=== PATIENT | female | born 1950 | race Caucasian/White ===

== ENCOUNTER 2020-02-26 21:59 | Emergency (ER) | payer OTHER ==
[~2020-02-26] VITALS: Ht 157.5 cm; Wt 93.0 kg
[~2020-02-26 21:59] MED LIST: ADDERALL 20 MG20 M1 PO; CIPROFLOXACIN500 M1 PO; FLOMAX0.4 MG PO; LEXAPRO20 MG PO; NORCO 5-325 TA1 EAC2 PO; NORCO 5-325 TA1 EACH PO; PROBIOTIC1 EACH PO; TAMSULOSIN HCL0.4 M1 PO; TORADOL 10 MG T10 MG PO; VICODIN 5-5001 EACH PO; VITAMINC500 PO; VYVANSE60 MG PO; WELLBUTRIN XL300 MG PO; ZOFRAN4 MG PO
[2020-02-26 23:01] LABS: URINE BILIRUBIN NEGATIVE (Negative); URINE BLOOD 3+ (Negative); URINE CLARITY CLOUDY; URINE COLOR YELLOW; URINE GLUCOSE-RANDOM* NEGATIVE (Negative); URINE KETONES NEGATIVE (Negative); URINE LEUKOCYTES-REFLEX NEGATIVE (Negative); URINE NITRITE-REFLEX NEGATIVE (Negative); URINE PROTEIN (DIPSTICK) 2+ (Negative); URINE SPECIFIC GRAVITY >= 1.030 (1.005-1.035); URINE UROBILINOGEN 0.2 E.U./dl (0.2-1.0)
[2020-02-26 23:02] LABS: ABSOLUTE NEUTROPHILS 11.1 thou/uL (1.4-8.2); BASOPHILS 0.6 % (0.0-2.0); EOSINOPHILS 4.6 % (0.0-3.0); HEMATOCRIT 29.3 % (37.0-47.0); HEMOGLOBIN 10.3 gm/dL (12.0-15.0); LYMPHOCYTES 14.9 % (24.0-44.0); MCH 29.3 pg (26.0-34.0); MCHC 35.1 g/dL (28.0-37.0); MCV 83.5 fL (80.0-100.0); MONOCYTES 7.4 % (1.0-8.0); PLATELET COUNT 555 thou/uL (150-400); POLYS 72.5 % (36.0-66.0); RBC 3.51 mil/uL (4.20-5.00); RDW 14.3 % (10.5-14.5); WBC 15.3 thou/uL (4.0-11.0)
[2020-02-26 23:08] LABS: ANION GAP 10 mmol/L (7-16); BUN 18 mg/dL (7-18); CALCIUM 8.4 mg/dL (8.5-10.1); CHLORIDE 105 mmol/L (98-107); CO2 24 mmol/L (21-32); GLUCOSE 126 mg/dL (74-106); POTASSIUM 4.1 mmol/L (3.5-5.1); SODIUM 139 mmol/L (136-145)
[2020-02-26 23:13] LABS: CASTS None Seen /LPF (None Seen); MUCUS None Seen strn/LPF (None Seen); SQUAMOUS 4-10 Moderate /LPF (0-3); URINE WBC-REFLEX 6-15 Few /HPF (0-5)
[2020-02-26 23:14] LABS: BACTERIA-REFLEX 1-9 Few /HPF (None Seen); CRYSTALS None Seen /LPF (None Seen); URINE RBC >20 Many /HPF (0-2)
[2020-02-26 23:18] LABS: ALBUMIN 2.8 g/dL (3.4-5.0); SGOT 19 U/L (15-37); SGPT 20 U/L (30-65); TOTAL BILIRUBIN 0.4 mg/dL (0.2-1.0); TOTAL PROTEIN 6.7 g/dL (6.4-8.2); TROPONIN-I <0.06 ng/mL (<0.06)
[2020-02-26] MEDS ORDERED: MESALAMINE PO (23:24)
[2020-02-26] MEDS ORDERED: keflex PO (23:34)
[2020-02-27 00:46] VITALS: BP 141/63
[2020-02-27] MEDS ORDERED: FLOMAX0.4 MG PO (00:52)
[2020-02-27] MEDS ORDERED: NORCO 7.5-3251 EACH PO (00:52)
[2020-02-27] MEDS ORDERED: ZOFRAN ODT4 MG PO (00:52)
--- NOTE | 2020-02-27 08:50 | EKG ---
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
== END 2020-02-27 01:05 | disposition home or self-care (01) ==
LOC: ER 21:59
PROVIDERS: Emergency Medicine
DX: N23 Unspecified renal colic (principal); R42 Dizziness and giddiness; L40.9 Psoriasis, unspecified; Z87.442 Personal history of urinary calculi; Z98.51 Tubal ligation status; Z79.899 Other long term (current) drug therapy; Z88.1 Allergy status to other antibiotic agents; Z91.041 Radiographic dye allergy status; Z91.013 Allergy to seafood

== ENCOUNTER 2020-11-07 15:08 | Inpatient (IN) | payer OTHER ==
[~2020-11-07] VITALS: Ht 157.5 cm; Wt 72.6 kg
--- NOTE | ~2020-11-07 | EMS ---
[place] [address] EMS Patient Care Report Name: BRITTANY MONTENEGRO Room #: REG JORDON Morris#: [id number] Admission: 11/07/20 Attend Phys: Discharge: Date of : 54 Report #: [id number] THIS REPORT FOR: //name// Report Transmitted: 11/07/2020 16:33 EMS Care Summary [place], [place]/[facility] Incident [id number] @ 11/07/2020 14:23 Incident Location [address] [place] [address] Patient BRITTANY MONTENEGRO Female, 70 Years 1950 Patient Address [address] [place] [address] Patient History Other,Behavioral/Psychiatric Disorder,Congestive Heart Failure (CHF),Kidney Stone,Ulcerative Colitis,Insomnia, Patient Allergies Shellfish allergy,Amoxicillin, Patient Medications Prednisone, Potassium, Other, Lasix, Keflex, Accupril, Adderall, [place], Chief Complaint SHORTNESS OF BREATH Disposition Transported No Lights/[place] Reason Psychiatric Problem/Abnormal Behavior/Suicide Attempt Transported To [facility] Narrative S: 70 Y/O FEMALE FOUND SITTING ON HER BED AT HOME C/O SHORTNESS OF BREATH FOR "THE PAST COUPLE OF WEEKS". PATIENT HAS A VERY LABILE AFFECT AND IS VERBALLY AGGRESSIVE AT TIMES WELL APOLOGETIC. PATIENT SPEAKS [place] [address] EMS Patient Care Report Name: BRITTANY MONTENEGRO Room #: REG [facility].#: [id number] Admission: 11/07/20 Attend Phys: Discharge: Date of : 54 Report #: [id number] BETWEEN BREATHS WITHOUT DIFFICULTY, INCLUDING YELLING AT EMS AND POLICE. PATIENT DENIES NAUSEA, VOMITING, WEAKNESS, DIAPHROESIS, OR VISION CHANGES. O: SEE ASSESSMENT SECTION. A: SHORTNESS OF BREATH, R/O SCHIZOPHRENIA, R/O MEDICATION NON COMPLIANCE. P: SEE FLOW CHART SECTION. Initial Vitals @15:04P: 114,R: 22,BP: 110/55,Pain: 0/10,GCS: 15,CO: 0,SpO2: 98,Revised Trauma: 12, @14:51P: 123,R: 24,BP: 127/79,Pain: 0/10,GCS: 15,SpO2: 89,Revised Trauma: 12, @14:41P: 123,R: 24,BP: 114/70,Pain: 0/10,GCS: 15,SpO2: 90,Revised Trauma: 12, Assessments @14:38MENTAL:Person Oriented,Other,Event Oriented,Place Oriented,Time Oriented,SKIN:HEENT:Eyes: Left Pupil: 4-mm,Eyes: Right Pupil: 4-mm,LUNG SOUNDS:ABDOMEN:PELVIS//GI:EXTREMITIES:Left Leg: Edema,Capillary Refill: Right Upper: < 2 Sec,Right Leg: Edema,PULSE:Radial: 2+ Normal,NEURO: Impression Acute Respiratory Distress (Dyspnea) Procedures @14:52Oxygen FlowRate: 3 Device: Nasal Cannula (NC) Response: ImprovedSucceeded@14:38ALS AssessmentResponse: UnchangedSucceeded@14:48StretcherResponse: Unchanged Timeline 14:13,Call Received 14:13,Dispatch Notified 14:23,Dispatched 14:23,En Route 14:36,On Scene 14:38,At Patient 14:38,ALS Assessment,Response: UnchangedSucceeded, 14:41,BP: 114/70 M,PULSE: 123,RR: 24 R,SPO2: 90 Ox,ETCO2: ,BG: ,PAIN: 0,GCS: 15, 14:48,Stretcher,Response: Unchanged 14:51,BP: 127/79 M,PULSE: 123,RR: 24 R,SPO2: 89 Ox,ETCO2: ,BG: ,PAIN: 0,GCS: 15, 14:52,Oxygen FlowRate: 3 Device: Nasal Cannula (NC) Response: ImprovedSucceeded, 14:54,Depart Scene 15:04,BP: 110/55 M,PULSE: 114,RR: 22 R,SPO2: 98 Ox,ETCO2: ,BG: ,PAIN: 0,GCS: 15, [address] [address] EMS Patient Care Report Name: MONTENEGROBRITTANY Room #: REG Ibrah[facility]#: [id number] Admission: 11/07/20 Attend Phys: Discharge: Date of : 54 Report #: [id number] 15:06,At Destination 15:22,Call Closed Disclaimer v1.1 Copyright 2020 [employer] This EMS Care Summary contains data elements from the applicable legal record (which may be displayed differently). It is designed to provide pertinent information for the following purposes: continuity of care, clinical quality, and state data reporting. The complete legal record is available to ED staff and administrators of the receiving hospital in [employer]'s Patient Tracker. All data is provided "as is."
[~2020-11-07 15:08] MED LIST changes: +MESALAMINE PO; -NORCO 5-325 TA1 EAC2 PO; +NORCO 7.5-3251 EACH PO; +NORCO7.5 PO; +ZOFRAN ODT4 MG PO; +keflex PO
[2020-11-07 15:09] VITALS: BP 178/79
--- NOTE | 2020-11-07 15:30 | NUR ---
PT PRESENTS TO THE ER VIA EMS WITH COMPLAINTS OF SOB. PT NOTES THIS HAS BEEN GOING ON FOR A FEW WEEKS. PT NOTES WORSE WITH EXERTION AND WHEN TRYING TO LAY FLAT. PT DENIES HOME OXYGEN. PT DENIES RT HX. PT IS A FORMER SMOKER. PT DENIES PAIN AT THIS TIME. PT DENIES FURTHER ASSOCIATED S/S. PT HAS BLE EDEMA NOTED PT STATES "ITS NOT BAD IT USUALLY IS" PT PEDAL PULSES STRONG EQUAL AND STEADY BILATERALY. PT LUNGS CLEAR BILATERALLY. PT IS ALERT AND ORIENTED X4, GCS 15, PT IS SINUS TACH ON THE MONITOR ALL OTHER VSS ON RA, PT ROSALES, PT SKIN PWD, PT TALKING IN COMPLETE SENTENCES WITHOUT DISTRESS, CALL LIGHT WITHIN REACH AND ENCOURAGED TO USE
[2020-11-07 15:45] LABS: HEMOGLOBIN 9.5 gm/dL (12.0-15.0); MCH 20.6 pg (26.0-34.0)
--- NOTE | 2020-11-07 15:45 | NUR ---
RN WANTING TO PLACE PT ON 2L NC AT THIS TIME. O2 SAT DROPPING BELOW 90% ON RA. EDUCATION TO PT PROVIDED TO WHY. PT DECLINED OXYGEN
[2020-11-07 15:46] LABS: HEMATOCRIT 32.4 % (37.0-47.0); MCHC 29.3 g/dL (28.0-37.0); MCV 70.2 fL (80.0-100.0); PLATELET COUNT 272 thou/uL (150-400); RBC 4.62 mil/uL (4.20-5.00); WBC 11.9 thou/uL (4.0-11.0)
[2020-11-07 15:51] LABS: ANION GAP 11 mmol/L (7-16); BUN 33 mg/dL (7-18); CALCIUM 8.5 mg/dL (8.5-10.1); CHLORIDE 101 mmol/L (98-107); CO2 29 mmol/L (21-32); CREATININE 1.2 mg/dL (0.6-1.0); GLUCOSE 146 mg/dL (74-106); POTASSIUM 3.4 mmol/L (3.5-5.1); SODIUM 141 mmol/L (136-145)
[2020-11-07 15:59] LABS: URINE BILIRUBIN NEGATIVE (Negative); URINE BLOOD NEGATIVE (Negative); URINE CLARITY CLEAR; URINE COLOR YELLOW; URINE GLUCOSE-RANDOM* NEGATIVE (Negative); URINE KETONES 1+ (Negative); URINE LEUKOCYTES-REFLEX 1+ (Negative); URINE NITRITE-REFLEX NEGATIVE (Negative); URINE PROTEIN (DIPSTICK) TRACE (Negative); URINE SPECIFIC GRAVITY 1.025 (1.005-1.035)
[2020-11-07 16:01] LABS: SGOT 54 U/L (15-37); SGPT 77 U/L (30-65); TOTAL BILIRUBIN 2.5 mg/dL (0.2-1.0); TOTAL PROTEIN 5.8 g/dL (6.4-8.2); TROPONIN-I <0.06 ng/mL (<0.06)
[2020-11-07 16:06] LABS: BACTERIA-REFLEX 1-9 Few /HPF (None Seen); CASTS None Seen /LPF (None Seen); CRYSTALS None Seen /LPF (None Seen); SQUAMOUS >10 Many /LPF (0-3); URINE RBC 1-2 Rare /HPF (NONE SEEN); URINE WBC-REFLEX 6-15 Few /HPF (0-5)
--- NOTE | 2020-11-07 16:09 | NUR ---
EDISON (TARAH) ([phone]) UPDATED ON PATIENT STATUS PER PATIENT'S APPROVAL.
[2020-11-07 16:13] LABS: ABSOLUTE NEUTROPHILS 8.4 thou/uL (1.4-8.2); NUCLEATED RBCS 1 /100WBC
[2020-11-07 16:14] LABS: ANISOCYTOSIS SLIGHT; POLYCHROMASIA 1+; SCHISTOCYTES OCCASIONAL; TARGET CELLS FEW; TEARDROPS FEW
[2020-11-07] MEDS ORDERED: PREDNISONE 5 MG5 MG PO (16:19)
[2020-11-07] MEDS ORDERED: FUROSEMIDE 20 M20 M1 PO (16:24)
[2020-11-07] MEDS ORDERED: CEPHALEXIN500 MG PO (16:26)
--- NOTE | 2020-11-07 16:33 | NUR ---
Dr. Worthington updated that this RN spoke to patient's son, Zenon, at this time. Son reports that patient had a divorce a year ago and after that her mental health has been deteriorating since. Reports that patient has been getting fired from multiple PCPs.
--- NOTE | 2020-11-07 16:40 | NUR ---
PT CALLED THIS RN TO THE ROOM AT THIS TIME. THIS RN WAS HEADED INTO THE ROOM AT THIS TIME TO HANG SCHEDULED ABX. PT STATES "DO YOU KNOW WHY I PUSHED THE CALL BUTTON?" THIS RN STATES "NO I DO NOT, HOW CAN I HELP YOU?" AT THIS TIME PT YELLED AT THIS RN AT STATED "GET OUT OF MY WAY SO I CAN READ THIS SIGN, WHAT DOES IT SAY? IT SAYS IF I AM NOT SATISFIED WITH MY CARE TO SPEAK WITH THE NURSE JUNIOR BRAND MANAGER OR DON" THIS RN STATES TO PT "I AM SORRY YOU ARE NOT SATISIFID WHAT IS WRONG AND HOW CAN I MAKE YOUR STAY BETTER?" AT THIS TIME PT CUT THIS RN OFF MID SENTENCE AND TOLD ME TO GET OUT OF THE ROOM AND GET MY JUNIOR BRAND MANAGER" ALISTAIR, HL7 INTERFACE DEVELOPER AT THIS TIME NOTIFIED AND GOING TO BEDSIDE
--- NOTE | 2020-11-07 17:00 | NUR ---
PT CONTINUING TO SCREAM AT NURSING STAFF. PT SPEAKING INTANGIBLE THOUGHTS AND IS NOT EASILY REDIRECTED. ED PROVIDER TO BEDSIDE AT THIS TIME
--- NOTE | 2020-11-07 18:08 | NUR ---
PT IN CT AT THIS TIME
--- NOTE | 2020-11-07 18:36 | NUR ---
THIS RN CALLED TO BEDSIDE AT THIS TIME. PT AGAIN REQUESTING FOOD. PT STATES "I HAVENT EATEN ALL DAMN DAY THIS IS RIDICULOUS I WANT FOOD NOW" THIS RN APOLOGIZED AND AGAIN ATTEMPTED TO EDUCATE THE PT ON WHY SHE CANNOT EAT UNTIL THE CT RESULTS HAD COME BACK. PT STATES "IM MAD AND I DONT FUCKING CARE" PT THEN YELLED AT RN SCREAMING "RAISE MY BED LIKE I ASKED YOU TO" THIS RN ASKED THAT THE PT NOT YELL AND ASK POLITELY I WOULD BE HAPPY TO HELP HER BUT TO PLEASE TREAT MYSELF AND STAFF WITH RESPECT WE ARE HER" PT NEEDS FUTHER EDUCATION. VSS ON RA. CALL LIGHT REMAINS WIHTIN REACH
--- NOTE | 2020-11-07 18:53 | NUR ---
PT RIPPED IV OUT AT THIS TIME AND THREW IT ON THE BLOOD. ED PROVIDER NOTIFIED. CATHETER INTACT. BLEEDING CONTROLLED AT THIS TIME.
--- NOTE | 2020-11-07 18:59 | NUR ---
REPORT GIVEN TO LOLY GALAN AT THIS TIME
--- NOTE | 2020-11-07 19:02 | NUR ---
This RN back in to room to restart IV. Patient starts yelling at this RN. Reports "I want to see the doctor with the scans and have my results explained to me!" Reports this nurse is not to touch her! This RN explained that the physician was just in speaking with patient. Patient cuts this nurse off and says "now leave!"
[2020-11-07 19:08] LABS: INR 1.12; PROTIME 12.1 Seconds (10.5-12.1)
--- NOTE | 2020-11-07 19:14 | NUR ---
Dr. Neal speaking to patient's son, Zenon, at this time.
[2020-11-07 19:44] VITALS: BP 123/66
[2020-11-07 20:50] VITALS: BP 144/73
[2020-11-07 21:10] VITALS: BP 135/81
[2020-11-07 22:10] LABS: HEMATOCRIT 37.1 % (37.0-47.0); MCH 20.9 pg (26.0-34.0); MCHC 29.7 g/dL (28.0-37.0); MCV 70.3 fL (80.0-100.0); RBC 5.28 mil/uL (4.20-5.00); RDW 18.6 % (10.5-14.5); WBC 14.9 thou/uL (4.0-11.0)
--- NOTE | 2020-11-07 23:58 | NUR ---
admit pt admitted to room 363 via ed for bilateral pulmonary embolism. report from Tracie SALCIDO from er pt given dose of geodon with son's consent. 72 mg lovenox given sq. to floor with heparin gtt ordered confirmedverbally with ANU Vizcaino. Charge alex Yao advised it was too soon after lovenox to start gtt, pharmacy contacted regarding protocol suggested gtt start in 12 hours. ANU Vizcaino re-contacted and in to see pt stated if pt wanted to refuse heparin gtt to dc and ordered lovenox 1mg/kg/q12hrs. heparin dc'd and lovenox ordered entered. admission assessment and history completed ivf's infusing as ordered, boxed lunch and water pitcher provided. vss pt drowsy from geodon. pt listed son Zenon as contact but stated she didn't want any information given to him. received phone call from Zenon and I just confirmed information he had already been aware of from emergency room. pt asking for record of heparin with my signature on it flowsheet for heparin protocol provided.
[2020-11-08 01:31] LABS: HEMATOCRIT 33.6 % (37.0-47.0); HEMOGLOBIN 9.9 gm/dL (12.0-15.0); MCH 20.5 pg (26.0-34.0); MCHC 29.5 g/dL (28.0-37.0); MCV 69.4 fL (80.0-100.0); RBC 4.84 mil/uL (4.20-5.00); RDW 19.1 % (10.5-14.5); WBC 12.2 thou/uL (4.0-11.0)
[2020-11-08 01:45] LABS: ALBUMIN 2.8 g/dL (3.4-5.0); CALCIUM 8.4 mg/dL (8.5-10.1); CREATININE 1.2 mg/dL (0.6-1.0); POTASSIUM 3.5 mmol/L (3.5-5.1); TOTAL PROTEIN 5.9 g/dL (6.4-8.2)
--- NOTE | 2020-11-08 07:06 | EKG ---
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 : 1950 Requested By: Elliott Worthington Order Number: [id number] MD: Isidro Ro Measurements Intervals [place] Rate: 111 P: 76 [place]: 156 QRS: 33 QRSD: 66 T: QT: 358 QTc: 487 Interpretive Statements Sinus tachycardia Nonspecific T abnormalities, lateral leads Borderline prolonged QT interval Compared to ECG 02/26/2020 23:10:05 T-wave abnormality now present Sinus rhythm no longer present Electronically Signed On 11-08-2020 7:06:22 CDT by Isidro Ro [email or web address] <ELECTRONICALLY SIGNED> By: Isidro Ro MD, [facility] 11/08/20 0706 1519 1519 Isidro Ro MD, [facility] /EPI
[2020-11-08 07:42] VITALS: BP 107/74
--- NOTE | 2020-11-08 08:10 | NUR ---
BRITTANY STATES HER SON EDISON TIRADO, JUSTINE ARE ALLOWED TO VISIT. DAUGHTER ANJEL IS ALLOWED TO VISIT AND DAUGHTER USAMA AND JULIA ARE ALLOWED TO VISIT. SISTER RENA AND BROTHER IN LAW TYRONE EPPERSON ARE ALLOWED TO VISIT. BRITTANY STATES IT IS OKAY TO GIVE HER CHILDREN CANDIDA, EDISON, AND ANJEL ARE ALLOWED TO BE DESIGNATED REPRESENTATIVES AND SHE STATES THIS MORNING THAT SHE IS OKAY FOR THEM TO GET PATIENT INFORMATION. BRITTANY STATES TO NOT GIVE PT INFORMATION OVER THE PHONE TO HER SISTER OR BROTHER IN LAW. BRITTANY STATES NOT TO ALLOW TATY VILLA OR TATY NEWMAN AND PT INFORMATION OR ALLOW THEM TO VISIT. TATY VILLA IS X- AND TATY NEWMAN IS SON IN LAW.
--- NOTE | 2020-11-08 09:14 | EKG ---
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 : 1950 Requested By: Zev Bell Order Number: [id number] MD: Joao Johnson Measurements Intervals [place] Rate: 111 P: 76 [place]: 156 QRS: 33 QRSD: 66 T: QT: 358 QTc: 487 Interpretive Statements Sinus tachycardia Nonspecific ST and T wave abnormality Borderline prolonged QT interval Compared to ECG 02/26/2020 23:10:05 T-wave abnormality now present Electronically Signed On 11-08-2020 9:14:01 CDT by Joao Johnson [email or web address] <ELECTRONICALLY SIGNED> By: Joao Johnson MD, [facility] 11/08/20 0914 1519 1519 Joao Johnson MD, [facility] /EPI
--- NOTE | 2020-11-08 09:55 | 2DMMODE ---
[facility] [place] [address] 2 D/M-MODE ECHOCARDIOGRAM Name: BRITTANY MONTENEGRO Room #: 363-P ADM IN M.R.#: [id number] Admission: 11/07/20 Attend Phys: Zev Bell MD Discharge: Date of : 54 Report #: [id number] THIS REPORT FOR: cc: GENET - No family physician/PCP FAM - No family physician/PCP Alfonso Huertas MD ~ APPROVED REPORT Study performed: 11/08/2020 08:38:13 EXAM: Comprehensive 2D, Doppler, and color-flow Echocardiogram Patient Location: Bedside Room #: 363 BSA: 1.74 HR: 111 bpm BP: 135/81 mmHg Rhythm: Tachycardia Other Information Study Quality: Good Indications Pulmonary Embolism 2D Dimensions RVDd: 38.93 mm IVSd: 8.89 (7-11mm) LVOT Diam: 19.70 (18-24mm) LVDd: 52.02 mm PWd: 8.89 (7-11mm) LVDs: 49.65 (25-40mm) Left Atrium: 38.84 (27-40mm) Aortic Root: 29.24 mm Volumes Left Atrial Volume (Systole) Single Plane 4CH: 56.90 mL Single Plane 2CH: 73.31 mL LA ESV Index: 40.00 mL/m2 Aortic Valve AoV Peak Juan.: 1.17 m/s AO Peak Gr.: 5.43 mmHg LVOT Max P.50 mmHg LVOT Max V: 0.94 m/s JAXON Vmax: 2.45 cm2 [facility] [address] [place] [address] 2 D/M-MODE ECHOCARDIOGRAM Name: BRITTANY MONTENEGRO Room #: 363-P ADM IN Dom.#: [id number] Admission: 11/07/20 Attend Phys: Zev Bell MD Discharge: Date of : 54 Report #: [id number] Pulmonary Valve PV Peak Juan.: 0.73 m/s PV Peak Gr.: 2.13 mmHg Tricuspid Valve TR Peak Juan.: 3.04 m/s RAP Estimate: 15.00 mmHg TR Peak Gr.: 36.92 mmHg PA Pressure: 52.00 mmHg Left Ventricle The left ventricle is normal size. There is global hypokinesis of the left ventricle. There is normal left ventricular wall thickness. Left ventricular systolic function is severely decreased. LVEF is 25%. The left ventricular diastolic function is abnormal. Right Ventricle Right ventricle is borderline dilated. Right ventricle is mildly hypokinetic. Atria Left atrium is dilated. Right atrium is dilated. Aortic Valve The aortic valve is normal in structure. Trace aortic regurgitation. There is no aortic valvular stenosis. Mitral Valve The mitral valve is normal in structure. Trace mitral regurgitation. No evidence of mitral valve stenosis. Tricuspid Valve The tricuspid valve is normal in structure. Moderate to severe tricuspid regurgitation. Estimated PAP: 52mmHg. Pulmonic Valve Pulmonic valve is not well visualized. The pulmonic valve is not well visualized. Great Vessels The aortic root is normal in size. The ascending aorta is normal in size. The inferior vena cava is dilated with no inspiratory collapse. Pericardium There is no pericardial effusion. [facility] [address] [place] [address] 2 D/M-MODE ECHOCARDIOGRAM Name: BRITTANY MONTENEGRO Room #: 363-P [facility]#: [id number] Admission: 11/07/20 Attend Phys: Zev Bell MD Discharge: Date of : 54 Report #: [id number] <Conclusion> The left ventricle is normal size. There is global hypokinesis of the left ventricle. LVEF is 25%. Right ventricle is borderline dilated. Right ventricle is mildly hypokinetic. Left atrium is dilated. Right atrium is dilated. The aortic valve is normal in structure. Trace aortic regurgitation. The mitral valve is normal in structure. Trace mitral regurgitation. The tricuspid valve is normal in structure. Moderate to severe tricuspid regurgitation. Estimated PAP: 52mmHg. Pulmonic valve is not well visualized. The aortic root is normal in size. There is no pericardial effusion. <ELECTRONICALLY SIGNED> By: Alfonso Huertas MD 11/08/20 0955 0955 0955 Alfonso Huertas MD /INF
[2020-11-08 10:09] LABS: % SATURATION 4 % (20-39); IRON 16 ug/dL (50-170); TIBC 372 ug/dL (250-450)
--- NOTE | 2020-11-08 14:16 | NUR ---
RN SPOKE WITH PT'S SON EDISON AND GAVE PT UPDATE AND PERMISSION WAS GIVEN TO RN THIS AM FROM PT TO GIVE HER CHILDREN UPDATES AND PT INFORMATION.
[2020-11-08 16:00] VITALS: BP 97/67
--- NOTE | 2020-11-08 18:43 | NUR ---
REQUEST FOR RECORDS SIGNED BY PT AND SENT TO [facility] BY BURLAP MAN.
[2020-11-08 20:08] VITALS: BP 111/71
--- NOTE | 2020-11-08 20:28 | NUR ---
PT HAS HAD MANY INSTANCES OF FAST SPEECH, AND PARANOID BEHAVIOR, NON LINEAR THOUGHTS. . RN LET PSYCE DOCTOR KNOW OF PT'S BEHAVIOR TODAY AND DOCTOR WITNESSED IT HERSELF.
[2020-11-09 03:31] VITALS: BP 106/71
--- NOTE | 2020-11-09 03:56 | NUR ---
ASSUMED CARE OF PT AT SHIFT CHANGE. PT IS AOX4 AND LETS NEEDS BE KNOWN. PT IS UP AD CATHERINE. ASSESSMENT CHARTED. LOVENOX CONTINUED FOR PE. PT WAS ON 3L O2 VIA NC; PT REFUSES TO KEEP O2 ON; PT CURRENT SATS 96% ON RA. PT REPORTED SOME PAIN; PRNS GIVEN. PT RAN SR/ST ON TELE. PT DID NOT SLEEP THIS SHIFT. VSS; WILL CONTINUE TO MONITOR. PT INDICATED SIGNS OF ELOPEMENT PLANNING. PLANT MACHINIST NOTIFIED AND HALLWAY KEPT DOORS CLOSED. PT IS UNHAPPY WITH FAMILY AND SISTER WHO CAME TO VISIT EARLIER DURING THE SHIFT. PT STATES "I'M ALLERGIC TO MY FAMILY."
[2020-11-09 05:15] LABS: HEMATOCRIT 31.8 % (37.0-47.0); HEMOGLOBIN 9.1 gm/dL (12.0-15.0); MCH 20.3 pg (26.0-34.0); MCHC 28.6 g/dL (28.0-37.0); MCV 71.1 fL (80.0-100.0); RBC 4.47 mil/uL (4.20-5.00); RDW 19.2 % (10.5-14.5); WBC 13.3 thou/uL (4.0-11.0)
[2020-11-09 05:38] LABS: CALCIUM 8.2 mg/dL (8.5-10.1); CREATININE 1.1 mg/dL (0.6-1.0); POTASSIUM 3.6 mmol/L (3.5-5.1)
[2020-11-09 07:16] VITALS: BP 99/58
[2020-11-09 08:28] LABS: ALBUMIN 2.8 g/dL (3.4-5.0); DIRECT BILIRUBIN 0.4 mg/dL (<0.1-0.2); TOTAL BILIRUBIN 1.7 mg/dL (0.2-1.0); TOTAL PROTEIN 5.9 g/dL (6.4-8.2)
[2020-11-09 09:07] LABS: HAV IgM AB (ANTI-HAV IgM) Negative (Negative); HEPATITIS B SURFACE AG Negative (Negative); HEPATITIS C VIRUS AB <0.1 (0.0-0.9)
[2020-11-09 11:24] LABS: AMP/METHAMP Negative (Negative); BARBITURATES Negative (Negative); BENZODIAZEPINES Negative (Negative); COCAINE Negative (Negative); METHADONE Negative (Negative); OPIATES POSITIVE (Negative); PCP Negative (Negative)
--- NOTE | 2020-11-09 14:29 | NUR ---
CARE ASSUMED AT 0700, PT ALERT AND ORIENTED X4, ANXIOUS AT TIMES. PT REFUSE TO WEAR OXYGEN, STATED SHE IS FEELING BETTER. SOB WITH EXERTION AT TIMES. PT IS EDUCATED ON KEEPING OXYGEN ON, CONTINUE TO REFUSE. UP AD CATHERINE TO BATHROOM. EMOTIONAL SUPPORT PROVIDED WHEN NEEDED. WILL CONTINUE TO MONITOR.
--- NOTE | 2020-11-09 15:10 | NUR ---
INITIAL ASSESSMENT: Received consult. SW reviewed chart and spoke with nursing and attending physician. Pt was admitted from home due to bilateral PE. Pt with hx of bipolar disorder. Psych is following for admission to [facility] unit when medically stable. SW met with pt at bedside. Introduced role of SW. Pt is alert/orientated to self and place. Pt reports she lives alone in a house in [place] ([facility] and [place]). Pt with flight of ideas and unable to answer SW questions. Pt states that her son Zenon and her dtrs are able to be provided with info. Pt unable to recall the name of her PCP or outpatient psychiatrist. Pt states she will consider going upstairs to [facility]S for therapy. Pt reports that she does not have family support. Per pt, her son Zenon lives in [place] and is an alcoholic. Pt requested info not be released to her ex-, Albert. SW has left two voice messages for pt's son, Zenon. Awaiting call back at this time. SW is following to assist as needed with discharge planning.
[2020-11-09 16:53] VITALS: BP 139/76
[2020-11-09 19:32] VITALS: BP 102/67
--- NOTE | 2020-11-09 23:30 | NUR ---
Pt. very upset at beginning of shift. She is very angry,irritable and verbally hostile when another RN went to her room to answer her call light. When this RN entered her room to do assessment and to give her HS meds, she said she is not ready until she's done texting her sister. Gave pt. some time and once she's ready she agreed to do my assessment and allowed me to give her lovenox. She verbalized some concerns about her family (sister and ) which made her very angry and upset. Listened to pt. and allowed to vent. Offered med to help her calm down but she refused stating she does not like taking medicine. Also informed her pain med is available if she is experiencing pain. She then mentioned that O2 cannula has been on the floor. Informed pt. that I can give a new one but did not want me to do it stating she is not going to wear it anyway and she got upset again telling me to just do whatever is asked and don't make her repeat things.
--- NOTE | 2020-11-10 00:30 | NUR ---
Pt. called RN and requested not to give informations to chyna Miles , Joe Montanez and Dr. Jesse Paulson. She also does not want either of the to visit her. Admitting called to make her a confidential pt. Pt. also asked who does she need to talk to for a change in her code status to No Code. Pt. informed she needs to speak to doctor upon rounding to discuss her wishes. She then asked for 2 packets of sugar and when I asked which sugar she would prefer (yellow ,pink or white) she started yelling " there's only one real sugar the others are not real ".
[2020-11-10 04:45] VITALS: BP 122/58
[2020-11-10 05:22] LABS: HEMATOCRIT 29.3 % (37.0-47.0); HEMOGLOBIN 8.5 gm/dL (12.0-15.0); MCH 20.7 pg (26.0-34.0); MCHC 28.9 g/dL (28.0-37.0); MCV 71.5 fL (80.0-100.0); RBC 4.1 mil/uL (4.20-5.00); RDW 18.7 % (10.5-14.5); WBC 12.3 thou/uL (4.0-11.0)
--- NOTE | 2020-11-10 07:03 | NUR ---
Pt. stated she may have slept some. When she woke up , she's calm and apologized for her behavior last night. She requested for another bedside table and provided to her. She got up to bathroom to void then c/o her chest being tight stating it is nothing new and it's because of her blood clot. Refused pain med. Provided a new O2 cannula , she said she does not need it at this time and got angry again. Offered fresh iced water and declined stating it is a waste of natural resources. Later on she called and asked for ice which KIER HAND gave her. KIER HAND reported she is verbally abusive to her. She then called again to ask for a nurse because IV was beeping.(Pt. is not connected to IV , pump is beeping due to low battery). Pt. asked if she can have whatever was given to her , looking at IV fluids and IV iron bag in pump. Pt. informed no , it's for hospital use only. She then requested for nurse supervisor hairspring fabrication stating staff is not trained right. Tonger notified but unable to come at this time.
[2020-11-10 07:37] VITALS: BP 117/67
[2020-11-10 10:59] LABS: ALBUMIN 2.4 g/dL (3.4-5.0); DIRECT BILIRUBIN 0.3 mg/dL (<0.1-0.2); TOTAL BILIRUBIN 1.1 mg/dL (0.2-1.0); TOTAL PROTEIN 5.2 g/dL (6.4-8.2)
--- NOTE | 2020-11-10 11:33 | NUR ---
GUSTAVO reviewed chart and spoke with nursing and attending physician. Pt is medically stable to discharge to [facility] today. SW left message for 5S to see if they will have a bed available for pt today. GUSTAVO left voice message for pt's son, Zenon, to provide update and discuss discharge plan. GUTSAVO is following to assist as needed with discharge planning.
[2020-11-10 13:08] LABS: CERULOPLASMIN 48.4 mg/dL (19.0-39.0)
[2020-11-10] MEDS ORDERED: ACETAMINOPHEN325 M1 PO (13:55)
[2020-11-10] MEDS ORDERED: COLACE 100 MG100 MG PO (13:55)
[2020-11-10] MEDS ORDERED: IRON325 PO (13:55)
[2020-11-10] MEDS ORDERED: CEFUROXIME500 MG PO (13:55)
[2020-11-10] MEDS ORDERED: MIRALAX17 GM PO (13:55)
[2020-11-10] MEDS ORDERED: XARELTO15 MG PO (13:55)
[2020-11-10] MEDS ORDERED: OLANZAPINE ODT5 MG PO (13:55)
[2020-11-10 16:47] VITALS: BP 105/75
--- NOTE | 2020-11-10 17:08 | NUR ---
ORDERS FOR PT TO TRANSFER TO 5S IN. MADE PT AWARE, SEEMS IRRITATED. WENT IN TO MAKE PT AWARE, IT WAS TIME FOR HER TO BE TRANSFERRED TO 5S, PT STARTED YELLING AND CUSSSING. PT STATED SHE WANTED TO TALK TO DR. LEE. PAGE DR. LEE WAITING FOR RESPONSE BACK
--- NOTE | 2020-11-10 17:57 | NUR ---
PT TAKEN DOWN TO 5S WITH THE HELP OF SECURITY. REPORT GIVEN TO LOLY DOUGLAS
== END 2020-11-10 17:49 | DRG 871 ==
LOC: ER 15:08 → 3W 19:31 → EROBS 19:31 → 3W 20:50
PROVIDERS: Emergency Medicine; Internal Medicine Gastroenterology; Nurse Practitioner; Nurse Practitioner Family; Student in an Organized Health Care Education/Training Program; ADMIT Hospitalist; ATTEND Hospitalist
DX: A41.9 Sepsis, unspecified organism (principal); I26.99 Other pulmonary embolism without acute cor pulmonale; N39.0 Urinary tract infection, site not specified; K51.90 Ulcerative colitis, unspecified, without complications; R74.01 Elevation of levels of liver transaminase levels; I50.9 Heart failure, unspecified; G47.00 Insomnia, unspecified; F31.9 Bipolar disorder, unspecified; Z20.822 Contact with and (suspected) exposure to COVID-19; Z60.2 Problems related to living alone; D50.9 Iron deficiency anemia, unspecified; Z79.899 Other long term (current) drug therapy; Z88.1 Allergy status to other antibiotic agents; Z91.041 Radiographic dye allergy status; Z91.013 Allergy to seafood; Z87.442 Personal history of urinary calculi; Z87.891 Personal history of nicotine dependence
CPT/HCPCS: 10879

== ENCOUNTER 2020-11-10 14:55 | Inpatient (IN) | payer OTHER ==
[~2020-11-10] VITALS: Ht 157.5 cm; Wt 75.7 kg
[~2020-11-10 14:55] MED LIST changes: +ACETAMINOPHEN325 M1 PO; +CEFUROXIME500 MG PO; +CEPHALEXIN500 MG PO; +COLACE 100 MG100 MG PO; +FUROSEMIDE 20 M20 M1 PO; +IRON325 PO; +MIRALAX17 GM PO; +OLANZAPINE ODT5 MG PO; +PREDNISONE 5 MG5 MG PO; +XARELTO15 MG PO
[2020-11-10 19:50] VITALS: BP 125/62
--- NOTE | 2020-11-11 02:08 | NUR ---
11-10-20 CARE TRANSFERRED 1914. RECEIVED REPORT AND AM RN AND THIS TEXTILE STYLIST WENT TO SPEAK TO PT ABOUT SIGNING CONSENT FORMS, PT SITTING IN BED WITH HEAD OF BED IN HIGH FOWLERS, PT PRESENTS ARGUMENTATIVE WITH FLIGHT OF IDEAS. CONSULTED HCP Shira NOONAN DO AND HCP Renae LEE MD AND [facility] BROADCAST JOURNALIST. RECEIVED REPORT FROM GARBAGE PICK UP MAN FOR THIS SHIFT VS B/P 125/62, P 101, R 18, T 98.7, 02 SAT 95% RA RR EVEN AND NONLABORED ON RA. 96 HOUR HOLD PAPER WORKED FAXED. PT IS A POTENTIAL THREAT TO SELF. DURING MEDICATION ADMIN. PT REPORTED SHE WAS NOT TAKING ANY MEDICATION AND THAT SHE HAD ALREADY PASSED THE PE I DON'T NEED ANTICOAUGLANT, I ALREADY PASSED TWO PE. THEN PT SWITCH BACK AND ACCEPTED MEDICATION. PT EMOTIONAL MOOD SWINGS AND CONTINUES TO BE ARGUMENTATIVE. Renae LEE MD AND THIS TEXTILE STYLIST PRESENTED PT WITH 96HOUR FORM AND PT AGITATED AND VERBAL AGGRESSITVE. GARBAGE PICK UP MAN RETRIVED SNACK PACK FOR PT AND SHE ATE 100%. PT BED ADJUSTED FOR COMFORT. PT DENIES PAIN AND SI/HI. LATER NOTED PT RESTING WITH EYES CLOSED. LATER PT STARTED YELLING AND STATING SHE WAS DYING PT WAS REASSURED AND REASSESSED VS B/P 122/62, P 102, R 18, O2 SAT 95-97% RA. PT LUNGS SOUNDS NO CHANGE CLR/DIM. PT THEN REPORTED THAT SHE HAD A BM AND HERE PEE WAS NOT BLUE, NOTED MEDIUM BM IN TOLIET AND YELLOW URINE. ZERO S/S OF ACUTE DISTRESS NOTED, PT WILL CONTINUE TO BE MONITOR PER [facility].
[2020-11-11 07:28] VITALS: BP 97/72
--- NOTE | 2020-11-11 19:43 | NUR ---
0700 ASSUMED CARE OF PATIENT, PATIENT IN BED AT THAT TIME. PATIENT OUT TO DAYROOM AMB WITH STEADY GAIT. PATIENT TO ROOM AND LAYS DOWN TO REST. PATIENT YELLING FROM ROOM REQUESTING RESIRATORY TX DUE TO SOB, PATIENT PARANOID MEDICATION GIVING HER A REACTION. NO RESP DISTRESS NOTED, O2 SATS 96% WITH PULSE 78. PATIENT YELLING WITH INCREASED AGITATION YELLING AND SCREAMING FOR A DR THAT SHE IS GOING TO DUE TO MEDICATIONS. OLANZAPINE 7.[address] BY [address] NOONAN. 1605 SECURITY HERE FOR ASSISTANCE OF IM INJECTION. PATIENT PRIOR TO SECURITY ARRIVING PATIENT TO BR TO VOID AND HAVE BM. PATIENT REFUSING TO COME OUT. PATIENT ASSISTED OUT OF BR AND TO ROOM. OLANZAPINE 7.5 MG IM GIVEN TO LEDT DELTOID. 1 HR LATER PATIENT YELLING HER LEGS DO NOT WORK AND STARTS ASKING FOR RESPIRATORY TO COME AND CHECK HER OUT. PATIENT ASSISTED TO DAYROOM BY SENIOR TELECOMMUNICATIONS TECHNICIAN AND DR NOONAN. PATIENT USING WALKER FOR SUPPORT AT THAT TIME. CONTINUES TO ARGUE REGARDING MEDICATION AND NEEDING TO SEE RESPIRATORY. PATIENT IN DAYROOM WITH OTHERS SITTING QUIETLY.
[2020-11-11 19:47] VITALS: BP 123/74
[2020-11-12 00:06] LABS: GLYCOHEMOGLOBIN (HGB A1C) 6.2 % (4.8-5.6)
[2020-11-12 05:49] LABS: CALCIUM 8.4 mg/dL (8.5-10.1); CREATININE 0.8 mg/dL (0.6-1.0); POTASSIUM 3.3 mmol/L (3.5-5.1)
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
[2020-11-12 10:27] VITALS: BP 110/61
[2020-11-12 13:31] VITALS: BP 110/61
--- NOTE | 2020-11-12 14:45 | NUR ---
4761 RESUMMED CARE FROM OVERNIGHT SHIFT THIS AM, PATIENT IN DAY ROOM TALKING WITH OTHER PATIENTS. PATIENT ATE BREAKFAST I HAD TO CONVINCE PATIENT TO TAKE HER MEDICATIONS. PATIENTS IS DISRESPECTFUL TALKING DOWN TO OTHER PATIENTS AND I HAD TO TALK WITH PATIENT TO LET HER KNOW THAT IS NOT WHAT WE DO HERE. PATIENTS ABDOMEN SOFT BOWEL SOUNDS PRESENT PATIENTS LUNGS PRESENT CLEAR. PATIENT ALERT ORIENTED TIMES 4 WILL CONTINUE TO MONITOR PATIENT FOR SAFETY AND BEHAVIORS.
[2020-11-12 19:44] VITALS: BP 123/61
--- NOTE | 2020-11-13 00:02 | NUR ---
SITTING AT TABLE IN DR ALONE UPON INITIAL ASSESSMENT AT 1999 THIS PM.DYSPHORIC MOOD-ANGRY TENSE FACIAL EXPRESSION. SARCASTIC -WHEN RN INQUIRED HOW HER DAY HAD WENT STATES "OH IT WAS GREAT I LOVE BEING LOCKED UP LIKE A PRISONER AND FORCED TO TAKE MEDICINES I DON/T NEED" "ALL THESE OTHER SO CALLED PATIENTS ARE IDIOTS WHE JUST WANDER AROUND LIKE ZOMBIES FROM ALL THE MEDICINES YOU GIVE THEM" INITIALLY REFUSED 2100 ZYPREXA STATING SHE DOESN'T NEED OR WANT IT BUT WHEN SECURITY CONTACTED AND REAPPROACHED WITH IM STATES SHE WANTS TO TAKE IT BY MOUTH-WHEN REAPPROACHED WITH PILL AGAIN STATES SHE HAS CHANGED HER MIND-DID TAKE PO AT APPROX 2200 . PREOCCUPIED WITH BREATHING STATING SHE IS SHORT OF BREATH AND NEEDS A RESP. TX-LUNGS ARE CLEAR TO AUSCALTION-O2 SAT 100 PERCENT ON ROOM AIR IS NOTED TO HAVE EXAGGARATED ERRATIC BREATHING PATTERN WHILE CONVERSING WITH STAFF BUT WHEN OBSERVED IN DAYROOM SITTING ALONE RESPIRATIONS ARE EVEN ADN REGULAR. DOES REPORT RIB,AND LOW BACK PAIN RATED A 8 ON 1-10 SCALE-REQUESTED AND RECEIVED HYDROCODONE 7.5/325PO PRN AT 2300 AND APPEARS TO BE RESTING QUIETLY UPON REASSESSMENT.
--- NOTE | 2020-11-13 02:20 | NUR ---
AT 0100 BEGAN TO SCREAM LOUDLY -UPON STAFF ENTERING IS RECLINING IN BED STATING "I PISSED MY BED AND NOW YOU HAVE TO CLEAN IT UP" "I TOLD YOU I NEEDED A CALL LIGHT AND NOT THIS JOEL ROBERTS" THREW ROBERTS AT TV PRODUCTION ASSISTANT'S HEAD AND ALMOST STRUCK ROOMMATE WHO HAD BEEN SLEEPING BUT IS NOW AWAKE AND TEARFUL. WHEN CHECKED BED SHEETS AND CLOTHING ARE DRY-WHEN ASKED ABOUT THIS BRITTANY STATES "WELL IF YOU DON'T TAKE ME RIGHT NOW THEY ARE GOING TO BE FULL OF PISS"ATTEMPTED TO ASSIST TO BATHROOM BUT WHEN STAFF PUT HAND ON ELBOW TO ASSIST HER TO RISE FROM BED STRUCK STAFF IN CHEST WITH CLOSED FIST YELLING "DON'T YOU EVER TOUCH ME AGAIN I WILL HAVE YOU ARRESTED AND PUT IN RETIREMENT" SECURITY CONTACTED AND ZYPREXA 5MG GIVEN IM IN RIGHT DELTOID WITH MILD RESISTANCE. ROOMMATE MOVED OUT OF ROOM-. SIDE RAILS UP AND BED EXIT ALARM ON. CONTINUES TO YELL LOUDLY AFTER STAFF EXIT FROM ROOM-STAFF OUTSIDE DOOR FOR CLOSE OBSERVATION AT THIS TIME
[2020-11-13 09:20] VITALS: BP 118/61
[2020-11-13 09:34] VITALS: BP 118/61
--- NOTE | 2020-11-13 11:00 | NUR ---
1100 RESUMMED CARE FROM OVERNIGHT SHIFT THIS AM, PATIENT IN DAY ROOM TALKING WITH OTHER PATIENTS. PATIENT ALERT ORIENTED TIMES 3 PATIENT GETS AN ATTITUDE WHEN YOU ASK HER TO DO CERTAIN THINGS. PATIENT TOOK HER MEDICATION WITHOUT INCIDENCE PATIENT DENIES SI/HI/AH/VH AT PRESENT. PATIENT DID COMPLAIN OF PAIN IN CHEST AREA SHE RECEIVED HYDROCODONE 7.5 MG. PATIENTS ABDOMEN SOFT BOWEL SOUNDS PRESENT. PATIENTS LUNGS CLEAR PATIENT IS SOMETIMES SHORT OF BREATH HAS RESPIRATORY TREATMENTS. PATIENT IS GOING TO SOME GROUPS WILL CONTINUE TO MONITOR PATIENT FOR SAFETY AND BEHAVIORS.
[2020-11-13 20:52] VITALS: BP 125/78
--- NOTE | 2020-11-13 21:58 | NUR ---
PT PLAYING CARDS WITH PEERS AND TALKED ON PHONE WITH JOLIE. PT LOUD SPEECH. PT STATED SHE WILL NOT TAKE HER MEDICATIONS UNLESS SHE IS TOLD WHAT THEY ARE. PT STATED HAVING TO TAKE IM MEDICATIONS IS AGAINST HER FREE WILL. PT COMPLIANT WITH MEDS. PT WAS REDIRECTED TWICE, SHE WAS TELLING PEERS NOT TO TAKE THEIR MEDICATIONS. STEADY GAIT. 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
--- NOTE | 2020-11-14 04:56 | NUR ---
PT REPORTING UPPER LUNG DISCOMFORT , DECLINED PRN FOR ANXIETY OR PROTONIX. PT STATED SHE HAS TOLD THE DR AND THEY HAVE LISTENED TO HER LUNGS AND THEY DO NOT HEAR ANYTHING. PT NOT SOA OR IN DISTRESS WHEN TALKING WITH NURSE.
[2020-11-14 09:14] VITALS: BP 120/69
--- NOTE | 2020-11-14 16:02 | NUR ---
Alert and responds to name but refusing to answer orientation questions stating she knows she is orientated. Refusing to cooperative with parts of assessment and also stating that must listen over clothes. Using profanity and pulling back from RN. Verbally refused to take meds 3 times this AM but then asked meds to be placed in same cup and took without difficulty. Denies SI/HI. Repeatedly interrupting during roomates assessment. Using alot of sarcasm. Appeared to be sleeping when entered room to give meds to roommate in afternoon. Started yelling "shut up" and "be quiet". Then stated that she was also in pain and demanded pain medication. Hydrocodone given. Breath sounds clear. At times she complains of being short of breath but O2 sats 99% with RR of 16. Cepacol given for cough. Reg HR auscultated. Color pink with brisk capillary refill and palpable peripheral pulses. +1 edema in feet. Independent with voiding. Active bowel sounds over soft, rounded abdomen. Reports BM this AM. Ambulates with regular, steady gait. Currently sleeping without s/o distress.
[2020-11-14 18:57] VITALS: BP 101/69
--- NOTE | 2020-11-15 05:31 | NUR ---
11-14-20 CARE TRANSFERRED 1899. LATER PT AAOX4, VSS, RR EVEN AND NONLABORED ON RA, PT DENIES SI/HI AND REPORTS PAIN IN LEFT HIP SCORES 6 ON 0-10 SCALE. PT PRESENTS IN MANIC STATE AND HAS FLIGHT OF IDEAS. LATER REASSESSMENT OF PAIN AND PT SCALED AT 3 ON 0-10 SCALE. ZERO S/S OF ACUTE DISTRESS NOTED, PT WILL CONTINUE TO BE MONITOR PER [facility] PROTOCOL.
[2020-11-15 10:02] VITALS: BP 104/70
[2020-11-15 12:14] VITALS: BP 104/70
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
--- NOTE | 2020-11-15 18:33 | NUR ---
GUSTAVO and Dr. Russ completed the forms for a 21 day hold and faxed to [facility] courts. A copy of petition and fax confirmation sheet were placed in the chart.
--- NOTE | 2020-11-15 19:28 | NUR ---
GUSTAVO recieved a voicemail from [facility] worker, Aj Nicholson [phone]. SW returned the call but was unable to talk with the worker. SW left a voicemail for a call back.
[2020-11-15 19:47] VITALS: BP 103/57
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
[2020-11-16 06:11] LABS: CALCIUM 8.3 mg/dL (8.5-10.1); CREATININE 0.7 mg/dL (0.6-1.0); POTASSIUM 3.8 mmol/L (3.5-5.1)
[2020-11-16 13:10] VITALS: BP 102/64
--- NOTE | 2020-11-16 16:50 | NUR ---
0700 ASSUMED CARE OF PATIENT, PATIENT IN BED AT THAT TIME. PATIENT AMB WITH STEADY GAIT. OUT TO DAYROOM FOR BREAKFAST. MEDICATION TAKEN WHOLE WITHOUT DIFFICULTY. LOWER EXTREMITIES NOTED WITH EDEMA 1+ TO LEFT AND 2+ TO RIGHT. NO C/O PAIN, LS CLEAR, BS ACTIVE. VS THIS AM 82/58, 77, 16, 98.5, 97%. BP RECHECKED AFTER BREAKFAST MANUALLY BP 102/64. PATIENT IN ROOM YELLING FOR ASSISTANCE, POWER TRUCK DRIVER TO ROOM WITH BATHROOM ALARM SOUNDING OFF WELL. PATIENT IN BED STATING "I HAVE SHORTNESS OF BREATH AND I NEED TO PEE". PATIENT YELLING WITH NO SIGNS OF RESP DISTRESS. PATIENT UP TO BATHROOM COMPLETELY SOAKED. BRIEF CHANGED AND CLEAN CLOTHING GIVEN. PATIENT YELLING THAT STAFF DID NOT ARRIVE FASTER WITH RESPIRATORY TO HELP HER. AFTER CHANGED PATIENT ANB TO DAYROOM WITHOUT ASSISTANCE AND NO RESP DISTRESS, NO SOB NOTED. PATIENT SITS QUIETLY IN DAYROOM. PATIENT IS ARGUMENTATIVE WITH EVERYTHING AND DOES NOT WISH TO HEAR ANYONE ELSES RESPONSE. WET BRIEF X 3 NOTED. PATIENT NOTED APPROCHING DR NOONAN AND PATIENT ASKED A QUESTION, JUST DR WAS ABOUT TO RESPOND PATIENT WALKS AWAY. WILL CONTINUE TO OBSERVE
--- NOTE | 2020-11-16 17:08 | NUR ---
GUSTAVO recieved a call from [facility] worker Aj Nicholson [phone]. GUSTAVO gave and update on the Pt and informed the petition for a 21 day was faxed over. Aj asked that SW contact if petition is denied and Pt is discharged.
--- NOTE | 2020-11-16 17:19 | NUR ---
GUSTAVO called [facility] concerning hearing for 21 day petition. Hearing will be November 18, 2020 @ 9am via [place].
[2020-11-16 18:58] VITALS: BP 107/52
--- NOTE | 2020-11-16 20:44 | NUR ---
PT IN DAY ROOM SITTING IN LOUNGE CHAIR WATCHING TV IN BACK CORNER OF DAY ROOM. PT COMPLIANT WITH MEDS AND OPENED HER MOUTH BUT VERBALIZED THAT SHE DOES NOT WANT TO TAKE THEM. PT DID APPROPRIATELY ASK FOR INFORMATION RE HER MEDICATIONS. STEADY GAIT [facility] CONTACT, [place] FACIAL EXPRESSION. PT STATING THANK YOU TO STAFF. BLE EDEMA +3. PT REPORTED THAT SHE HAS HAD FREQUENT URINATION AND STATES AT TIMES SOA AND NOT ABLE TO GET TO BATHROOM QUICK ENOUGH.
--- NOTE | 2020-11-16 22:01 | NUR ---
PT DEMANDING TO KNOW WHY SHE IS HERE. PT YELLING SHARP TONED THEN APOLOGIZES. ASKING WHO IS KEEPING HER HERE. IF SHE HAD HER BELONGINGS SHE WOULD JUST WALK OUT OF HERE. STATING SHE IS BEING FORCED TO TAKE MEDICATIONS THAT MAKE HER TONGUE TIED. ASKING WHO HER CHANGE MANAGEMENT IS.
--- NOTE | 2020-11-16 23:49 | NUR ---
PT USING HOTEL ROBERTS TO HAVE NURSING STAFF GO TO HER ROOM, VERSUS AMBULATING TO ASK QUESTIONS. CALL ROBERTS REMOVED AND PT ENCOURAGED TO AMBULATE. PT CONTINUED TO MAKE DEMANDING STATEMENTS WHY AM I HERE, WHY DO I NOT HAVE MEDICINE FOR MY SOA. PT OFFERED PRN ANXIETY AND REFUSED. PT WENT TO SIT IN DAY ROOM. STAFF NOT ENGAGING PT WITH HER NEGATIVE BEHAVIORS LIKE ROCKING BED SIDE RAIL OR GROANING.
--- NOTE | 2020-11-17 01:22 | NUR ---
PT REPORTED FEELING TONGUE THICK DRAW.
--- NOTE | 2020-11-17 05:25 | NUR ---
PT AWAKE ALL NIGHT. PT DECLINED PRN FOR ANXIETY.
[2020-11-17 05:41] LABS: HEMATOCRIT 30.5 % (37.0-47.0); MCH 21.7 pg (26.0-34.0); MCHC 29.7 g/dL (28.0-37.0); RBC 4.17 mil/uL (4.20-5.00); RDW 21.1 % (10.5-14.5); WBC 8.4 thou/uL (4.0-11.0)
[2020-11-17 05:50] LABS: % SATURATION 5 % (20-39); IRON 14 ug/dL (50-170); TIBC 257 ug/dL (250-450)
[2020-11-17 07:30] VITALS: BP 116/62
[2020-11-17 12:04] VITALS: BP 116/62
--- NOTE | 2020-11-17 16:12 | NUR ---
GUSTAVO and Dr. Russ spoke with Maurice Phillips, , the [facility] fugitive investigator. Maurice requested nursing notes and psychiatric evaluation be faxed. Maurice informed a link will be sent for the hearing.
--- NOTE | 2020-11-17 16:22 | NUR ---
GUSTAVO recieved a phone call from Ricardo, Pt's son, concerning emails sent to SW. GUSTAVO confirmed the emails and photos were recieved. Ricardo wanted to know if the information was sent with the petition. GUSTAVO informed the emails were recieved too late to to be sent. Ricardo informed that he spent 12 hours on gathering the information. GUSTAVO informed that Maurice Phillips will be reaching out and to tell Maurice about the text messages, photos, and full order of protection againt the Pt. Ricardo stated he would return the call to Maurice concerning the matter.
[2020-11-17 19:26] VITALS: BP 116/63
[2020-11-17 20:00] VITALS: BP 116/63
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
[2020-11-18 08:56] VITALS: BP 108/66
[2020-11-18] MEDS ORDERED: XARELTO20 MG PO (09:27)
[2020-11-18] MEDS ORDERED: TORSEMIDE20 MG PO (09:28)
[2020-11-18] MEDS ORDERED: ZYPREXA 10 MG T10 MG PO (09:28)
[2020-11-18] MEDS ORDERED: PROTONIX 20 MG20 M1 PO (09:29)
--- NOTE | 2020-11-18 09:52 | NUR ---
21 day Petition was dismissed . Pt will discharge 11/18/2020 @11am home.
[2020-11-18 10:24] VITALS: BP 108/66
[2020-11-18 10:47] VITALS: BP 108/66
--- NOTE | 2020-11-18 11:29 | NUR ---
Pt has the following follow up appointments: PCP- Dr. Manpreet Banks 11/19/2020 @ 1:45pm Psychiatry Intake- [facility]. Pt will need to walk in to complete and intake assessment anytime M-F from 7:30am-8:30am. SW did inform Pt of this information verbally and provided it in writing on discharge handout
--- NOTE | 2020-11-18 13:20 | NUR ---
Assumed pt care at 0700. pt was alert and oriented x4. pt is compliant with medical coding specialist. Denies si/hi. Denies pain. PT WAS irritable and agitated. Argumentative of everything. pT goals was to win in court and leave the hospital. AMbulates with a steady gait. Took her meds whole, no difficulty noted. PT WAS D/C HOME at 1315. D/C with D/C instructions, prescription script WAS FAX TO pt prefered pharmacy. Pt REFUSED TO USE A W/C. PT AMBUALTED TO ER exit WITH auto glass installer. [facility] TRANSPORTED PT HOME.
--- NOTE | 2020-11-19 09:22 | D ---
[facility] [place] [address] DISCHARGE SUMMARY Name: BRITTANY MONTENEGRO Room #: 522B-B DIS IN M.R.#: [id number] Admission: 11/10/20 Attend Phys: Zain Landeros DO Discharge: 11/18/20 Date of : 54 Report #: [id number] THIS REPORT FOR: cc: FAM - No family physician/PCP FAM - No family physician/PCP Zain Landeros DO ~ DOC #: [id number] ZAIN Landeros DO DATE OF SERVICE: 11/18/2020 INPATIENT PSYCHIATRIC DISCHARGE SUMMARY The patient was under [place] 96-hour hold. She did have her 21-day hearing this morning, 11/18/2020 at 0900 hours. Probate Commissioner, Jerzy Moreno, dismissed the petition and thus patient was discharged today, pursuant to the legal requirements of a 21-day petition dismissal. DISCHARGE DIAGNOSES: Bipolar 1 disorder, most recent episode manic with psychotic features. ADDITIONAL DIAGNOSES: For this patient, perhaps as serious are diffuse pulmonary emboli, on Xarelto; bilateral lower extremity edema, on torsemide; urinary tract infection, resolved; iron deficiency anemia; history of ulcerative colitis; insomnia, which was likely due to her manic episode. The patient is discharged home. Psychiatric and medical followup through [facility]. She needs to establish a primary care physician within the next 30 days. DISCHARGE MEDICATIONS: As follows: Docusate 100 mg oral daily for bowel motility; Xarelto 20 mg oral with dinner for pulmonary emboli, this will be a 6-month course at least; torsemide 20 mg oral daily for edema; pantoprazole 20 mg oral in the a.m. for GERD and protection of the ulceration due to her Xarelto treatment; olanzapine 10 mg oral twice daily for shantell and psychosis. DISCHARGE DIET: The patient should have a regular diet. No alcohol, smoking or recreational drugs. The patient was given crisis suicide hotline information. She was advised to seek immediate medical care if there is bleeding, excessive chest pain, dizziness, fever greater than 101, nausea, vomiting, pain uncontrolled by medication; increased swelling, edema, or shortness of breath. LABORATORY DATA: The patient's laboratories on 11/17/2020, H and H 9.0 and 30.5.; white count 8.4, platelets 337. Chemistries: Sodium 138, potassium 3.8, chloride 105, bicarbonate 24, anion gap 9, BUN 16, creatinine 0.7, estimated GFR 83, glucose 113, calcium 8.3. Iron studies: Total iron was low at 14. [address] [address] DISCHARGE SUMMARY Name: BRITTANY MONTENEGRO Room #: 522B-B DIS IN M.R.#: [id number] Admission: 11/10/20 Attend Phys: Zain Landeros DO Discharge: 11/18/20 Date of : 54 Report #: [id number] normal at 357, percent sats at 5, unsaturated IBC 243. Ferritin 121. Folate 18.8. Additional studies: Urinalysis on 11/07/2020 was negative . REASON FOR ADMISSION: Back on 11/10/2020, 70-year-old female admitted voluntarily from medical floor here at [facility]. She was initially brought by EMS for shortness of breath, was found to have pulmonary emboli. She was manic on the medical floor. Dr. Nelson and Dr. Modi, hospitalist did petitions. HOSPITAL COURSE: The patient was admitted to Geriatric Psychiatry Unit. She was started on b.i.d. olanzapine, lithium was ordered as well. She refused to take lithium. She did require some backup injections for refusal, but in the last several days she was taking olanzapine orally. This was titrated to 10 mg twice a day. The patient was still belligerent, sarcastic, cursing I wanted her to have additional time in the hospital, so I sought a 21-day petition. The petition was dismissed for reported procedural issues; however, we need to respect court's decision and the patient was discharged. She was counseled on discharge, the consequences including disability and if she does not continue to get outpatient medical care and take her anticoagulant. PHYSICAL EXAMINATION: VITAL SIGNS: Her vital signs on day of discharge, temperature 36.4, pulse 96, respirations 16, BP 108/66, O2 sat 98%. MUSCULOSKELETAL: Normal gait and station. MENTAL STATUS EXAMINATION: This is a well-developed, unkempt female appearing stated age. Attention limited. Concentration limited. Speech loud, increased rate, normal tone. Thought process: Linear and goal directed. Thought content focused on " won at discharge," some psychomotor agitation. No psychomotor retardation. Denied suicidal intent or plan. Denied homicidal intent or plan. Denies auditory, visual, or tactile hallucinations. Insight and judgment will be limited. Fund of knowledge is above average. Prognosis for this patient is guarded given her present manic state. Mental health need for medical supervision and estrangement from her family. Her son, Ricardo gave collateral during this admission and was aware of her discharge via court decision today. Greater than 45 minutes spent on discharge activities inlcuding web ex court hearing. ZAIN Landeros, DO [facility] [address] [place] [address] DISCHARGE SUMMARY Name: BRITTANY MONTENEGRO Room #: 522B-B DIS IN M.R.#: [id number] Admission: 11/10/20 Attend Phys: Zain Landeros DO Discharge: 11/18/20 Date of : 54 Report #: [id number] <ELECTRONICALLY SIGNED> By: Zain Landeros DO 11/19/20 0922 [id number] Zain Landeros DO /nt
== END 2020-11-18 13:05 | disposition home or self-care (01) | DRG 885 ==
LOC: SBH
PROVIDERS: Hospitalist; Nurse Practitioner Family; ADMIT Psychiatry & Neurology Psychiatry; ATTEND Psychiatry & Neurology Psychiatry
DX: F31.2 Bipolar disorder, current episode manic severe with psychotic features (principal); A41.9 Sepsis, unspecified organism; I26.99 Other pulmonary embolism without acute cor pulmonale; N39.0 Urinary tract infection, site not specified; K51.90 Ulcerative colitis, unspecified, without complications; F03.91 Unspecified dementia, unspecified severity, with behavioral disturbance; R45.851 Suicidal ideations; D50.9 Iron deficiency anemia, unspecified; K57.90 Diverticulosis of intestine, part unspecified, without perforation or abscess without bleeding; G47.00 Insomnia, unspecified; Z88.1 Allergy status to other antibiotic agents; Z91.013 Allergy to seafood; Z79.899 Other long term (current) drug therapy; Z86.718 Personal history of other venous thrombosis and embolism
CPT/HCPCS: 10880